=== PATIENT | male | born 1990 | race Caucasian/White ===

== ENCOUNTER 2025-02-17 07:45 | Emergency (ER) | payer OTHER, SELFPAY ==
[2025-02-17 07:47] VITALS: BP 142/63
--- NOTE | 2025-02-17 09:54 | ED.GENMED ---
History of Present Illness
General
Chief Complaint: Back Pain
Source: patient and family (Mother contributes to history, stating he had a stroke at age 18 with clot evacuation)
Exam Limitations: none
Time Seen by Provider: 02/17/25 09:51
Nursing documentation reviewed up to this point in time: agreed with
History of Present Illness
History of Present Illness:
34-year-old male presents the emergency department due to right sided back pain, shoulder pain and anterior chest pain ongoing for 3 weeks. He was lying in the bed that broke, and he strained his right upper back. The symptoms improved and went
away, then returned over the past several days. He has a history of protein S deficiency and prothrombin mutation, for which he takes Xarelto. The pain is worse when he moves. He thought it was musculoskeletal initially, but is concerned due to
his history.
Past History
Past History
ED Past Medical History: CVA (Thrombotic occipital CVA) and Other (Hypercoagulable blood with history of CVA and PE treated with intervention and removal of clot. Prothrombin Gene Mutation, Protein S deficiency-Ob Xarelto)
ED Past Surgical History: Other (Interventional clot retrieval from the basilar artery.)
Social History
Tobacco: Non-smoker
Alcohol: None
Drug: None
Personal: Single
Living: with family
Employment: Employed
Family History
Family History: Other
Review of Systems
Review of Systems
Allergies reviewed?: Yes
All Other Systems: Not applicable
Constitutional: Reports no symptoms
EENT: Reports no symptoms
Respiratory: Reports no symptoms
Cardiac: Reports chest pain
ABD/GI: Reports no symptoms
: Reports no symptoms
Musculoskeletal: Reports back pain
Skin: Reports no symptoms
Neurological: Reports no symptoms
Endocrine: Reports no symptoms
Hematologic/Lymphatic: Reports no symptoms
Psychiatric: Reports no symptoms
Phy Exam
Physical Exam
Physical Exam:
Physical Exam
General: no apparent distress, not acutely ill
Neck: supple. no meningeal signs. normal posterior pharynx
Heart: s1/s2 regular rate and rhythm, no murmur. equal radial
pulses.
HEENT: Pupils equal round reactive to light, EOMI
Back: Right paraspinal tenderness, no step offs or deformity
Lungs: no acute respiratory distress. clear bilaterally. Right chest wall tender to palpation, reproducing pain.
Abdomen: normal bowel sounds. not tender. no CVAT
Neuro: alert and oriented. no focal neurological deficits cranial nerves II through XII intact
Skin: no rash
Psychiatric: well kept. interactive and cooperative
Extremities: no edema. no calf tenderness. negative homans. good distal pulses
Course
Orders/Labs/Results
Orders:
Orders
02/17/25 07:53
EKG [Electrocardiogram (*1)] Urgent
Reason for Study: Chest Pain
EKG- Treatment ONCE
02/17/25 10:07
Cardiac Monitoring- Treatment ONCE
IV Insert/Care/Rem.- Treatment PRN
CR Chest - 2 Views Urgent
Comment:
Reason For Exam: right side chest pain
Pulse Ox/cont/shift [RESP] Stat
Quantity: 1
02/17/25 10:23
Complete Blood Count/With Diff Urgent
Comprehensive Metabolic Panel Urgent
D-Dimer Urgent
Troponin I Urgent
02/17/25 11:44
Cyclobenzaprine HCl [Flexeril] 10 mg PO NOW STA
Abnormal Lab Results
02/17/25
10:23
MPV 10.7 H fL
(7.4-10.4)
Monocytes % 9.9 H %
(1.7-9.3)
Chloride 108 H mmol/L
(98-107)
Albumin 5.1 H g/dl
(3.5-5.0)
02/17/25 10:23
02/17/25 10:23
Vital Signs
Initial and Last Documented VS:
Initial Vital Signs
Temp Pulse Resp BP Pulse Ox
98.4 F 68 18 142/63 100
02/17/25 07:47 02/17/25 07:47 02/17/25 07:47 02/17/25 07:47 02/17/25 07:47
Last Documented Vital Signs
Temp Pulse Resp BP Pulse Ox
98.4 F 50 18 145/97 99
02/17/25 07:47 02/17/25 10:00 02/17/25 10:00 02/17/25 10:00 02/17/25 10:00
MDM/Problems Addressed
Differential Diagnosis Includes:
PE, pneumothorax
MDM/Problems Addressed:
34-year-old male with right upper back pain. No signs pneumothorax or PE or ACS. Stable for d/c.
Chronic conditions affecting care: Other (PE)
Acute Exacerbation and/or Progression of Chronic Illness: Other (coagulation disorder)
*Radiology
Radiology exam reviewed: preliminary read by ED provider (cxr nad)
*Pulse Oximetry
Patient hypoxic: no
*EKG
Interpreted by ED Provider?: Yes
EKG Intrepretation Date: 02/17/25
EKG Intrepretation Time: 07:58
Interpretation: abnormal
Comparison EKG: no comparison EKG present
Heart Rate: 57
Rate: bradycardiac
Rhythm: sinus
Haynes: normal axis
Interval: normal interval
QRS Pattern: normal QRS
Ischemia: non-specific ST changes
*Teacher Of The Emotionally Disturbed Interpretation
Rate: bradycardiac
Interpretation: abnormal
Heart Rate: 58
Rhythm: sinus
*Critical Care Note
Total Time (30-74mins, 75-104mins- exclusive of procedures): Not Applicable
Data Reviewed
Review of Other/Old Records Reveals: Radiology Studies (CT chest 11/07/2014 no acute findings)
Source: records
Further Testing Considered But Not Given:
CT chest not indicated
ED Attending Note
-
Portions of this chart may have been created with voice recognition software.� Occasional wrong word or��sound alike� substitutions may have occurred due to the inherent limitations of voice recognition software.
Discharge Plan
Departure
Patient Disposition: Home (Routine Discharge)
Date of Disposition: 02/17/25
Time of Disposition: 11:39
Patient with high blood pressure during this ER visit?: Yes
Condition: Good
Discharge Problem:
Upper back pain on right side
Instructions: Upper Back Pain (DC), BLOOD PRESSURE
Prescriptions:
New
cyclobenzaprine 10 mg tablet
10 mg PO TID PRN (Reason: back pain) Qty: 14 0RF
No Action
rivaroxaban [Xarelto] 20 MG tablet
20 mg PO QPM
cephalexin 500 MG capsule
500 mg PO BID Qty: 10 1RF
prednisone 50 MG tablet
50 mg PO DAILY Qty: 5 0RF
amoxicillin-pot clavulanate 1 EACH tablet
1 ea PO Q12H Qty: 20 0RF
Referrals:
Leonor Herbert, [Family Provider] - Call in 1-3 days for appt
Interventions
Interventions:
*Risk Screen - Suicide Last Done: 02/17/25 07:47
*General Assessment Last Done: 02/17/25 07:47
*Neglect/Abuse Screening Last Done: 02/17/25 07:52
*ED- Fall Risk Assessment Last Done: 02/17/25 10:00
*ED COVID-19 Vaccine History Last Done: 02/17/25 07:47
ED-Musculoskeletal Assessment Last Done: 02/17/25 10:00
Discharge Date and Time
Discharge Date/Time: 02/17/25 11:55
Print Language: MOROCCAN
[2025-02-17 10:00] VITALS: BP 145/97
[2025-02-17 10:33] LABS: % Basophils 0.9 % (0-2); % Immature Granulocytes 0.2 % (0-0.5); % Lymphocytes 29.6 % (20.5-51.1); % Monocytes 9.9 % (1.7-9.3); % Neutrophils 58.4 % (42.2-75.2); Absolute Basophils 0.1 10^3/uL (0-0.2); Absolute Eosinophils 0.1 10^3/uL (0-0.7); Absolute Lymphocytes 1.7 10^3/uL (1.2-3.4); Absolute Monocytes 0.6 10^3/uL (0.1-0.6); Absolute Neutrophils 3.4 10^3/uL (1.4-6.5); Hematocrit 42.7 % (39.0-52.0); Hemoglobin 14.8 g/dL (13.0-18.0); Mean Corp Hgb Conc. 34.7 g/dL (33.0-37.0); Mean Corpuscular Hgb 28.8 pg (27.0-31.0); Mean Corpuscular Volume 83.2 fL (80.0-94.0); Mean Platelet Volume 10.7 fL (7.4-10.4); Nucleated Red Blood Cells % 0 % (-); Platelet Count 242 10^3/uL (130-400); Red Blood Cell Count 5.13 10^6/uL (4.70-6.10); Red Cell Dist. Width 12.3 % (11.5-14.5); White Blood Cell Count 5.8 10^3/uL (4.8-10.8)
[2025-02-17 10:46] LABS: D-Dimer < 0.27 ug/mlFEU (0.00-0.50)
[2025-02-17 10:59] LABS: Troponin I < 0.012 ng/ml
[2025-02-17 11:17] LABS: ALT (SGPT) 28 U/L (0-50); AST (SGOT) 33 U/L (17-59); Albumin 5.1 g/dl (3.5-5.0); Alkaline Phosphatase 53 U/L (38-126); Blood Urea Nitrogen 19 mg/dl (9-20); Carbon Dioxide 23 mmol/L (22-30); Chloride 108 mmol/L (98-107); Glucose 96 mg/dl (70-99); Potassium 4.4 mmol/L (3.5-5.1); Sodium 141 mmol/L (135-145); Total Bilirubin 0.7 mg/dl (0.2-1.3); Total Protein 7.4 g/dl (6.3-8.2); eGFR > 60.00
[2025-02-17] MEDS: FLEXERIL 10 MG PO (11:50)
== END 2025-02-17 11:55 | disposition home or self-care (01) ==
LOC: EMR 07:45
PROVIDERS: EMERGENCY PHYSICIAN Emergency Medicine; FAMILY PHYSICIAN Family Medicine
DX: M54.9 Dorsalgia, unspecified (principal); D68.59 Other primary thrombophilia; Z79.01 Long term (current) use of anticoagulants; Z86.73 Personal history of transient ischemic attack (TIA), and cerebral infarction without residual deficits; M54.6 Pain in thoracic spine
CPT/HCPCS: 99283; 71046; 80053; 84484; 85025; 85379; 93005